=== PATIENT | female | born 1995 | race Caucasian/White ===

== ENCOUNTER 2019-05-29 14:29 | Outpatient (CLI) | payer OTHER ==
--- NOTE | 2019-05-29 15:20 | ULT ---
Soft tissue sonogram left supratemporal scalp HISTORY: Soft tissue lump. FINDINGS: Sonographic evaluation of the scalp above the left ear shows a flat, very subtle oval hypoe choic lesion within the scalp soft tissues. It is 0.4 cm length by 0.5 cm width by 0.2 cm depth. No aggressive characteristics. IMPRESSION: Very small nonspecific disc like hypoechoic lesion within the scalp in region of palpable concern. Possibly a collapsed sebaceous cyst. No aggressive characteristics are evident.
== END 2019-05-29 14:30 | disposition home or self-care (01) ==
LOC: ULT 14:29
PROVIDERS: ATTEND Internal Medicine
DX: L98.9 Disorder of the skin and subcutaneous tissue, unspecified (principal)
CPT/HCPCS: 76999; 82607; 82746; 84439; 84443